=== PATIENT | female | born 1995 | race Caucasian/White ===

== ENCOUNTER 2018-02-09 01:39 | Emergency (ER) | payer OTHER, MEDICAID ==
[2018-02-09] MEDS: ACETAMINOPHEN 500 MG TAB PO (06:17)
[2018-02-09] MEDS ORDERED: BACITRACIN 0.9 GM OINT TOP ×2 (06:30)
[2018-02-09] MEDS: BACITRACIN 0.5%/ZINC 28.35 GM OINT TOP (06:52)
== END 2018-02-09 08:12 | disposition home or self-care (01) ==
LOC: FTE 01:39
DX: S60.512A Abrasion of left hand, initial encounter (principal); S60.511A Abrasion of right hand, initial encounter; S50.812A Abrasion of left forearm, initial encounter; S50.811A Abrasion of right forearm, initial encounter; S80.211A Abrasion, right knee, initial encounter; S80.212A Abrasion, left knee, initial encounter; V00.131A Fall from skateboard, initial encounter; Y92.9 Unspecified place or not applicable
CPT/HCPCS: 73610; 73630-LT; 99283-25